=== PATIENT | female | born 1965 | race Caucasian/White ===

== ENCOUNTER → 2017-01-10 | Day surgery (SDC) | payer OTHER ==
--- NOTE | 2017-01-07 13:20 | History & Physical Pre-Op ---
General Information and HPI History of Present Illness: Divya is a 51-year-old female who complains of a long-standing and worsening painful tendinitis and associated ganglionic cyst left foot. The patient has undergone an extended course of conservative care, including shoe gear and activity modification, rest, immobilization and courses of NSAIDs. None of this is yielded her any significant relief. Patient presents today for preoperative surgical consultation and was referred from Gil Carvajal DPM. Allergies/Medications Allergies: Coded Allergies: NO KNOWN ALLERGIES (05/23/14) Home Med list Alprazolam 1 MG TAB ANXIETY (Reported) Aripiprazole (Abilify) 2 MG TAB 1 TAB PO DAILY ANXIETY (Reported) Escitalopram Oxalate 20 MG TAB 1 TAB PO DAILY ANXIETY (Reported) Meclizine (Antivert) 25 MG TAB 1 TAB PO 4 TIMES/DAY PRN NAUSEA Ondansetron (Zofran Odt) 4 MG ODT 1 TAB PO 4 TIMES/DAY PRN NAUSEA Oxcarbazepine (Trileptal 150MG Tab) 150 MG TAB 1 TAB PO DAILY MENTAL HEALTH ( Reported) Oxcarbazepine (Trileptal 150MG Tab) 150 MG TAB 2 TAB PO AT BEDTIME MENTAL HEALTH (Reported) TRAZODONE HCL (Trazodone HCl) 100 MG TAB 3-4 TAB PO QPM SLEEP (Reported) Past History Medical History Neurological: CHRONIC FATIGUE SYNDROME EENT: vertigo dry eyes Respiratory: obstructive sleep apnea Gastrointestinal: IRRITABLE BOWEL SYNDROME Musculoskeletal: FIBROMYALGIA Psychiatric: anxiety, depression, insomnia Other Medical Hx: Lyme disease Surgical History Pertinent Surgical History: N Review of Systems Review of Systems: Unremarkable except for that noted in history of present illness Exam & Diagnostic Data Physical Exam: Lungs clear bilaterally. Heart sounds rate and rhythm regular. Lower extremity physical exam demonstrates intact pedal pulses bilaterally. Both dorsalis pedis and posterior tibial arteries are palpable bilaterally. Patient without any sensory or motor deficits. Her reflexes grossly intact. Patient noted to have same and pain with palpation range of motion through the left flexor tendons. There is a 1 cm x 1 cm nodular lesion identified over the extensor tendon. Lesion is firm and nonpulsatile. Assessment/Plan Assessment/Plan: Painful tenosynovitis with associated gangrene axis. A lengthy discussion reviewing both surgical and conservative options was held the patient at bedside and the patient elects to go forward surgery despite the risks. As Ranked By This Provider Problem List: 1. Neoplasm of unspecified behavior of bone, soft tissue, and skin Attending MD Review Statement Attending Statement Attending MD Statement: examined this patient
[~2017-01-10] VITALS: Ht 160 cm; Wt 58.1 kg
[~2017-01-10] MED LIST: ABILIFY 2MG2 MG PO; ABILIFY10 M1 PO; ALPRAZOLAM1 MG; ANTIVERT 25 MG25 M1 PO; ESCITALOPRAM20 MG PO; TRAZODONE100 MG PO; TRILEPTAL 150M150 MG PO; TRILEPTAL300 M1 PO; ZOFRAN ODT4 MG PO
--- NOTE | 2017-01-10 11:25 | Operative Report ---
Operative/Inv Procedure Report Surgery Date: 01/10/17 Name of Procedure: 1 excision of soft tissue mass left ankle 2 closure of open surgical wound local random advancement flap 3 intraoperative administration of ankle block anesthesia Pre-Operative Diagnosis: 1 painful and enlarging soft tissue mass left ankle Post-Operative Diagnosis: The same Estimated Blood Loss: scant Surgeon/Jig Mill Operator: WILLEM BRADFORD DPM Anesthesia: moderate sedation, block Operative/Procedure Note Note: After obtaining informed consent the patient was brought to the operating room and placed on the operating table in the supine position. The patient was then securely fastened to the operating table utilizing safety belt. After measures of IV sedation, 10 mL of 0.5% Marcaine plain was infiltrated about the patient's left ankle. Well-padded calf tourniquet was placed about the patient's left upper calf. 2 g of Ancef were delivered intravenously times one dose. The left lower extremity was then elevated to examine to limb, which point the calf tourniquet was inflated 250 mmHg. Attention directed to the anterior left ankle , where a lesion was identified just medial to the tibialis anterior tendon. A 7 cm linear incision overlying the lesion was marked out and the skin was incised with a 15 blade. The dissection was then carried down into the subtenons tissues where a firm end palish yellow nodular lesion was noted adherent to the deep side of the skin. It was dissected free at its inferior and deep margin and then resected superficially at the level of the skin, leaving a soft tissue defect anteriorly. The specimen was sent for pathologic inspection. The open wound was inspected for any remaining evidence of lesion and none was identified. Nipple was then irrigated with copious Svensson normal sterile saline. The adjacent tissues were then undermined, mobilized and advanced was the central aspect of the wound. The anterior lateral flap was advanced centrally and held at its deep side with 3-0 Vicryl. The anterior medial flap was also advanced and again held at its deep side centrally with 3-0 Vicryl. Subtenons tissues reapproximated 4-0 Vicryl and the skin edges reapproximated 3-0 nylon. The incision was dressed with Xeroform 4 x 4's Kerlix and an Ketan wrap. The patient was noted tolerate both procedure and anesthesia well and the patient was transported from the operating room to recovery via signs stable and fascia status intact to both the anterior medial and anterior lateral flaps.
== END ==
LOC: STS 03:56
DX: D21.22 Benign neoplasm of connective and other soft tissue of left lower limb, including hip (principal); M65.872 Other synovitis and tenosynovitis, left ankle and foot; M06.9 Rheumatoid arthritis, unspecified; G47.33 Obstructive sleep apnea (adult) (pediatric); F17.200 Nicotine dependence, unspecified, uncomplicated
CPT/HCPCS: 88305; J0690; J2001; J2250

== ENCOUNTER → 2018-01-23 | Day surgery (SDC) | payer OTHER ==
--- NOTE | 2018-01-20 15:22 | History & Physical Pre-Op ---
General Information and HPI History of Present Illness: Divya is a 52-year-old female with a long-standing and worsening complaint of painful neuromas right foot. The patient has undergone an extended course of conservative care, including shoe gear and activity modification, rest, immobilization and courses of NSAIDs. A little any significant relief. The patient presents today for preoperative surgical consultation. Allergies/Medications Allergies: Coded Allergies: oxycodone (From OXYCONTIN) (SEVERE VOMITING 01/19/18) Home Med list Albuterol Sulfate (Proair Hfa) 90 MCG HFA.AER.AD 2 PUF INH PRN RESP. ( Reported) Alprazolam (Xanax) 2 MG TABLET 1 TAB PO QPM SLEEP (Reported) Alprazolam 1 MG TABLET 1 TAB PO TIDPRN PRN ANXIETY (Reported) Aripiprazole (Abilify) 5 MG TABLET 1.5 TAB PO DAILY MENTAL HEALTH (Reported) Escitalopram Oxalate 20 MG TABLET 1 TAB PO DAILY MENTAL HEALTH (Reported) Oxcarbazepine (Trileptal) 150 MG TABLET 1 TAB PO BID MENTAL HEALTH (Reported) Past History Medical History Neurological: CHRONIC FATIGUE SYNDROME EENT: vertigo dry eyes Respiratory: obstructive sleep apnea Gastrointestinal: IRRITABLE BOWEL SYNDROME Musculoskeletal: FIBROMYALGIA Psychiatric: anxiety, depression, insomnia Other Medical Hx: Lyme disease Surgical History Pertinent Surgical History: N Review of Systems Review of Systems: Unremarkable except for that noted administration of Exam & Diagnostic Data Physical Exam: Lungs clear bilaterally. Heart sounds rate and rhythm regular. Lower extremity physical exam demonstrates intact pedal pulses bilaterally. Pulses dorsalis pedis and posterior tibial arteries are palpable bilaterally. Patient without any sensory motor deficits. Deep tendon reflexes grossly intact. Patient noted to have a positive Ashly sign involving the second third interspaces right foot. Assessment/Plan As Ranked By This Provider Problem List: 1. Lesion of right plantar nerve Attending MD Review Statement Attending Statement Attending MD Statement: examined this patient
[~2018-01-23] VITALS: Ht 160 cm; Wt 54.4 kg
[~2018-01-23] MED LIST changes: +ABILIFY5 M1 PO; +ALPRAZOLAM1 M2 PO; +ESCITALOPRAM OX20 MG PO; -ESCITALOPRAM20 MG PO; +PROAIR HFA8.5 GM INH; +TRILEPTAL150 M1 PO; +XANAX2 M1 PO
--- NOTE | 2018-01-23 10:29 | Operative Report ---
Operative/Inv Procedure Report Surgery Date: 01/23/18 Name of Procedure: 1 excision of neuroma second interspace right foot 2 excision of neuroma third interspace right foot 3 intraoperative administration of ankle block anesthesia Pre-Operative Diagnosis: 1 painful neuroma second interspace right foot 2 painful neuroma third interspace right foot Post-Operative Diagnosis: The same Estimated Blood Loss: scant Surgeon/Assembler Billiard Table: Nikita AHUJA,Choco Carvajal DPM Anesthesia: moderate sedation, block Operative/Procedure Note Note: After obtaining informed consent the patient was brought to the operating room and placed on the operating table in the supine position. The patient isn't securely fastened to the operating table utilizing safety belt. After administration of IV sedation, 10 mL of 0.5% Marcaine plain was infiltrated about the patient's right ankle. A well-padded ankle tourniquet was placed about the patient's right lower extremity. 2 g of Ancef were delivered intravenously times one dose. The right foot was scrubbed, prepped and draped in usual aseptic manner. The right lower extremity was elevated to examine to limb, which point the ankle tourniquet was inflated 250 mmHg. Attention directed dorsal aspect the right foot, where a 4 cm incisions were made overlying the distal second third interspaces. The dissection was then carried down to the digital branches of the neuromas which were freed and the body of the neuroma was distracted distally and cut proximally. Specimens were sent for pathologic inspection. The dissection then continued proximally, where the deep transverse intermetatarsal ligament was released at the second third interspaces. The open wounds were then irrigated with copious Svensson normal sterile saline. The deep tissues were reapproximated 4-0 Vicryl and the skin edges reapproximated 4-0 nylon. The incisions were dressed with Xeroform, 4 x 4 's Kerlix and an Ketan wrap. The patient was noted to tolerate both procedure and anesthesia well and the patient was transported from the operating room to recovery with vital signs stable best assess intact all digits right foot. Please cc a copy of the incisions dictation to Gil Carvajal DPM.
== END ==
LOC: STS 01:23
DX: G57.61 Lesion of plantar nerve, right lower limb (principal); R53.82 Chronic fatigue, unspecified; G47.33 Obstructive sleep apnea (adult) (pediatric); F17.200 Nicotine dependence, unspecified, uncomplicated
CPT/HCPCS: J0690; J1100; J1885; J2001; J2250

== ENCOUNTER 2018-02-06 01:32 | Emergency (ER) | payer OTHER ==
[~2018-02-06] VITALS: Ht 160 cm; Wt 55.3 kg
--- NOTE | 2018-02-06 01:38 | ED CARDIAC/CP/PALPITATIONS ---
History of Present Illness General Chief Complaint: Chest Pain Stated Complaint: " CHEST PAIN SINCE YESTRDY, LT ARM PAIN +N+V" Source: patient, family Exam Limitations: no limitations Vital Signs & Intake/Output Vital Signs & Intake/Output Vital Signs Date Time Temp Pulse Resp B/P B/P Pulse O2 O2 Flow FiO2 Mean Ox Delivery Rate 02/06 0611 97.8 88 18 136/84 96 Room Air 02/06 0450 98.2 68 20 142/90 94 Room Air 02/06 0154 98.3 93 18 156/101 96 Room Air Allergies Coded Allergies: oxycodone (From OXYCONTIN) (SEVERE VOMITING 02/06/18) Reconcile Medications Albuterol Sulfate (Proair Hfa) 90 MCG HFA.AER.AD 2 PUF INH PRN RESP. ( Reported) Alprazolam (Xanax) 2 MG TABLET 1 TAB PO QPM SLEEP (Reported) Alprazolam 1 MG TABLET 1 TAB PO TIDPRN PRN ANXIETY (Reported) Aripiprazole (Abilify) 5 MG TABLET 1.5 TAB PO DAILY MENTAL HEALTH (Reported) Escitalopram Oxalate 20 MG TABLET 1 TAB PO DAILY MENTAL HEALTH (Reported) Ibuprofen 600 MG TABLET 1 TAB PO TID PRN pain with food Oxcarbazepine (Trileptal) 150 MG TABLET 1 TAB PO BID MENTAL HEALTH (Reported) Triage Nurses Notes Reviewed? yes Onset: Gradual Duration: day(s): Timing: recent history Quality/Severity: mild Location: left upper chest wall tenderness Radiation: no radiation Activities at Onset: none Prior Chest Pain/Card Workup: no prior chest pain Associated Symptoms: left chest wall tenderness HPI: 52 yo woman presents with 2 days of left upper chest wall tenderness, worse with movement and palpation, with occasional nausea and vomiting, without diaphoresis, syncopal symptoms, dizziness, shortness of breath. She notes occasional pain radiating down her left arm. Past History Travel History Traveled to [place] past 21 day No Medical History Any Pertinent Medical History? see below for history Neurological: CHRONIC FATIGUE SYNDROME EENT: vertigo dry eyes Respiratory: obstructive sleep apnea Gastrointestinal: IRRITABLE BOWEL SYNDROME Musculoskeletal: FIBROMYALGIA Psychiatric: anxiety, depression, insomnia Other Medical Hx: Lyme disease Surgical History Surgical History: N Psychosocial History What is your primary language Kazakh Family History Hx Contributory? No Review of Systems Review of Systems Constitutional: Reports: no symptoms. EENTM: Reports: no symptoms. Respiratory: Reports: no symptoms. Cardiovascular: Reports: no symptoms. GI: Reports: no symptoms. Genitourinary: Reports: no symptoms. Musculoskeletal: Reports: no symptoms. Skin: Reports: no symptoms. Neurological/Psychological: Reports: no symptoms. Hematologic/Endocrine: Reports: no symptoms. Immunologic/Allergic: Reports: no symptoms. All Other Systems: Reviewed and Negative Physical Exam Physical Exam General Appearance: well developed/nourished, no apparent distress Head: atraumatic, normal appearance Eyes: Bilateral: normal appearance. Ears, Nose, Throat: normal pharynx, normal ENT inspection Neck: normal inspection, supple, full range of motion Respiratory: normal breath sounds, left sided chest wall tenderness to palpation. Cardiovascular: regular rate/rhythm Gastrointestinal: normal bowel sounds, soft, non-tender Back: normal inspection, normal range of motion Extremities: RIGHT FOOT WITH WELL HEALED DORSAL DISTAL SURGICAL SCAR W/O SIGN OF INFECTION, WITH SUTURES INTACT. MILD ECCHYMOSIS. Neurologic/Psych: no motor/sensory deficits, awake, alert, oriented x 3 Skin: intact, normal color, warm/dry Core Measures ACS in differential dx? No CVA/TIA Diagnosis No Sepsis Present: No Sepsis Focused Exam Completed? No Progress Differential Diagnosis: muscle pain vs ami vs other. Plan of Care: Orders Procedure Date/time Status TROPONIN LEVEL 02/06 0500 Complete EKG 02/06 0500 Active TROPONIN LEVEL 02/06 137 Complete LIPASE 02/06 137 Complete HEPATIC FUNCTION PANEL 02/06 137 Complete D-DIMER 02/06 137 Complete CBC WITHOUT DIFFERENTIAL 02/06 137 Complete BASIC METABOLIC PANEL 02/06 137 Complete AMYLASE 02/06 137 Complete EKG 02/06 135 Active Laboratory Tests 02/06/18 0510: Troponin I < 0.01 02/06/18 0207: Anion Gap 12, Estimated GFR > 60, BUN/Creatinine Ratio 22.0, Glucose 72, Calcium 10.2, Total Bilirubin 0.8, Direct Bilirubin 0.4, AST 30, ALT 35, Alkaline Phosphatase 75, Troponin I < 0.01, Total Protein 7.2, Albumin 4.6, Amylase 87, Lipase 132, D-Dimer High Sensitivty 400 H, CBC w Diff NO MAN DIFF REQ, RBC 5.03 , MCV 80.8 L, MCH 27.4, MCHC 33.9, RDW 19.7 H, MPV 8.8, Gran % 76.9 H, Lymphocytes % 18.4 L, Monocytes % 4.0, Eosinophils % 0.2, Basophils % 0.5, Absolute Granulocytes 5.9, Absolute Lymphocytes 1.4, Absolute Monocytes 0.3, Absolute Eosinophils 0, Absolute Basophils 0 Diagnostic Imaging: Viewed by Me: Radiology Read, CT Scan. Discussed w/RAD: Radiology Read, CT Scan. Radiology Impression: PATIENT: KAMILAH WORLEY PRESENT AGE: 52 PATIENT ACCOUNT NO: [id number] : 65 LOCATION: [facility] ORDERING PHYSICIAN: Keyon Rodas MD SERVICE DATE: 02/06/18 EXAM TYPE: CAT - CTA CHEST-PULMONARY EMBOLISM EXAMINATION: CT ANGIOGRAM OF THE CHEST WITH AND WITHOUT CONTRAST (CT PULMONARY ANGIOGRAM FOR PE) CLINICAL INFORMATION: Chest pain COMPARISON: Radiograph from earlier today TECHNIQUE: Prior to contrast administration, noncontrast localization images were obtained. Subsequently, multidetector volumetric imaging was performed from the thoracic inlet to below the diaphragms following the administration of 67 mL Optiray 320 intravenous contrast. No contrast reaction reported. Sagittal, coronal, and MIP oblique sagittal reformatted images were obtained on the CT workstation, uploaded to PACS, and reviewed. Total exam dose-length product 266 mGy-cm. FINDINGS: QUALITY OF STUDY/CONTRAST BOLUS: Satisfactory PULMONARY ARTERIES: No central or segmental pulmonary emboli. THORACIC AORTA: The ascending thoracic aorta is mildly ectatic, measuring 4.2 cm in dimension at the level of the main pulmonary artery. No dissection. 4 vessel branching configuration of the aortic arch. LUNG: The central airways are patent. Mild bronchial wall thickening is noted. No consolidation. Minimal bibasilar atelectasis. PLEURA: No pleural effusion or pneumothorax. MEDIASTINUM: Normal heart size. No pericardial effusion. No hilar or mediastinal lymphadenopathy. No evidence of septal bowing or right heart strain. CHEST WALL/AXILLA: No axillary or internal mammary lymphadenopathy. OSSEOUS STRUCTURES: No acute or suspicious osseous abnormality. Mild degenerative changes of the spine. UPPER ABDOMEN: Status post cholecystectomy. No reflux of contrast into the hepatic veins to suggest elevated right heart pressures. IMPRESSION: 1. No pulmonary embolism. 2. 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 3. Mild bronchial wall thickening noted which could be associated with a small airways process. VTE: negative DICTATED BY: Blayne Moreno MD DATE/TIME DICTATED:02/06/18537 BAG MACHINE ADJUSTER:ADA DATE/TIME TRANSCRIBED:02/06/18537 CONFIDENTIAL, DO NOT COPY WITHOUT APPROPRIATE AUTHORIZATION. <Electronically signed in Other Vendor System> SIGNED BY: Blayne Moreno MD 02/06/1845 CXR Impression: PATIENT: KAMILAH WORLEY PRESENT AGE : 52 PATIENT ACCOUNT NO: [id number] : 65 LOCATION: [facility] ORDERING PHYSICIAN: Keyon Rodas MD SERVICE DATE: 02/06/18 EXAM TYPE: RAD - XRY-PORTABLE CHEST XRAY EXAMINATION: XR PORTABLE CHEST CLINICAL INFORMATION: Chest pain COMPARISON: None TECHNIQUE: Portable frontal view of the chest was obtained. FINDINGS: The lungs are well expanded. There is no focal consolidation, edema, or effusion. No pneumothorax. The cardiomediastinal silhouette is within normal limits. No acute osseous abnormality. Radiopaque anchor in the left humeral head. IMPRESSION: No acute pulmonary findings. DICTATED BY: Blayne Moreno MD DATE/TIME DICTATED:02/06/18228 BAG MACHINE ADJUSTER:ADA DATE/TIME TRANSCRIBED:02/06/18228 CONFIDENTIAL, DO NOT COPY WITHOUT APPROPRIATE AUTHORIZATION. <Electronically signed in Other Vendor System> SIGNED BY: Blayne Moreno MD 02/06/18 0233 Initial ED EKG: normal axis, normal intervals, normal p-waves, normal QRS complex, normal sinus rhythm Departure Departure Disposition: HOME OR SELF CARE Condition: Stable Clinical Impression Primary Impression: Chest pain Referrals: Patient Has No Primary Care Dr (PCP/Family) Departure Forms: Customer Survey General Discharge Information Prescriptions: Current Visit Scripts Ibuprofen 1 TAB PO TID PRN pain #30 TAB with food Comments 02/06/18, 6:12AM... pt is feeling well, trop neg x 2, ekg benign x 2, ct angio benign, notable for 4.2cm thoracic aorta... discussed results with patient, including suggestion to follow aorta in future months. She expresses comfort about going home. Pt referred to product marketing consultant. Critical Care Note Critical Care Note Critical Care Time: non-applicable
[2018-02-06] MEDS ORDERED: IBUPROFEN600 M1 PO ×2 (02:19→06:17)
[2018-02-06 02:30] LABS: ABSOLUTE BASOPHIL COUNT 0 /CUMM (0.0-0.2); ABSOLUTE EOSINOPHIL COUNT 0 /CUMM (0.0-0.7); ABSOLUTE GRANULOCYTE CT 5.9 /CUMM (1.4-6.5); ABSOLUTE LYMPH COUNT 1.4 /CUMM (1.2-3.4); ABSOLUTE MONOCYTE COUNT 0.3 /CUMM (0.10-0.60); BASOPHIL % 0.5 % (0.0-2.0); EOSINOPHIL % 0.2 % (0-5); GRANULOCYTE % 76.9 % (42.2-75.2); HEMATOCRIT 40.7 % (37-47); MEAN CORPUSCULAR HGB 27.4 PG (27.0-31.0); MEAN CORPUSCULAR HGB CONC 33.9 G/DL (33.0-37.0); MEAN CORPUSCULAR VOLUME 80.8 FL (81.0-99.0); MEAN PLATELET VOLUME 8.8 FL (7.4-10.4); PLATELET COUNT 194 /CUMM (130-400); RBC DISTRIBUTION WIDTH 19.7 % (11.5-14.5); RED BLOOD CELL CT 5.03 /CUMM (4.20-5.40); WHITE BLOOD CELL COUNT 7.7 /CUMM (4.8-10.8)
--- NOTE | 2018-02-06 02:33 | RADIOLOGY REPORT ---
EXAMINATION: XR PORTABLE CHEST CLINICAL INFORMATION: Chest pain COMPARISON: None TECHNIQUE: Portable frontal view of the chest was obtained. FINDINGS: The lungs are well expanded. There is no focal consolidation, edema, or effusion. No pneumothorax. The cardiomediastinal silhouette is within normal limits. No acute osseous abnormality. Radiopaque anchor in the left humeral head. IMPRESSION: No acute pulmonary findings.
--- NOTE | 2018-02-06 05:45 | CT SCAN REPORT ---
EXAMINATION: CT ANGIOGRAM OF THE CHEST WITH AND WITHOUT CONTRAST (CT PULMONARY ANGIOGRAM FOR PE) CLINICAL INFORMATION: Chest pain COMPARISON: Radiograph from earlier today TECHNIQUE: Prior to contrast administration, noncontrast localization images were obtained. Subsequently, multidetector volumetric imaging was performed from the thoracic inlet to below the diaphragms following the administration of 67 mL Optiray 320 intravenous contrast. No contrast reaction reported. Sagittal, coronal, and MIP oblique sagittal reformatted images were obtained on the CT workstation, uploaded to PACS, and reviewed. Total exam dose-length product 266 mGy-cm. FINDINGS: QUALITY OF STUDY/CONTRAST BOLUS: Satisfactory PULMONARY ARTERIES: No central or segmental pulmonary emboli. THORACIC AORTA: The ascending thoracic aorta is mildly ectatic, measuring 4.2 cm in dimension at the level of the main pulmonary artery. No dissection. 4 vessel branching configuration of the aortic arch. LUNG: The central airways are patent. Mild bronchial wall thickening is noted. No consolidation. Minimal bibasilar atelectasis. PLEURA: No pleural effusion or pneumothorax. MEDIASTINUM: Normal heart size. No pericardial effusion. No hilar or mediastinal lymphadenopathy. No evidence of septal bowing or right heart strain. CHEST WALL/AXILLA: No axillary or internal mammary lymphadenopathy. OSSEOUS STRUCTURES: No acute or suspicious osseous abnormality. Mild degenerative changes of the spine. UPPER ABDOMEN: Status post cholecystectomy. No reflux of contrast into the hepatic veins to suggest elevated right heart pressures. IMPRESSION: 1. No pulmonary embolism. 2. 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 3. Mild bronchial wall thickening noted which could be associated with a small airways process. VTE: negative
[2018-02-06 06:11] VITALS: BP 136/84
== END 2018-02-06 06:18 ==
LOC: ERH 01:32
PROVIDERS: Pediatrics
DX: R07.9 Chest pain, unspecified (principal); M79.602 Pain in left arm; M79.7 Fibromyalgia
CPT/HCPCS: 71045; 93005; 93010; 96372; J1885; J3101